=== PATIENT | female | born 1985 | race Caucasian/White ===

== ENCOUNTER 2020-04-24 00:15 | Emergency (ER) | payer SELFPAY ==
[2020-04-24] MEDS ORDERED: Cyclobenzaprine 10 MG TAB ONE (00:31)
[2020-04-24] MEDS ORDERED: Acetaminophen 500 MG TAB ONE (00:31)
[2020-04-24 00:40] LABS: #Basophils 0.1 thou/uL (0.0-0.2); #Eosinphils 0.2 thou/uL (0.0-0.7); #Monocytes 0.7 thou/uL (0.11-0.59); #Neutrophils 5.8 thou/uL (1.40-6.50); %Basophils 0.6 % (0.0-1.0); %Lymphocytes 31.2 % (21.0-51.0); %Monocytes 6.8 % (0.0-10.0); %Neutrophils 59.4 % (42.0-75.0); Hemoglobin 11.3 g/dL (12.0-16.0); Mean Corpuscular HGB CONC 34.5 g/dL (32.0-36.0); Mean Corpuscular Hemoglobin 32.6 pg (27.0-31.0); Mean Corpuscular Volume 94.6 fL (78.0-98.0); Mean Platelet Volume 6.9 fL (7.4-10.4); Platelet Count 250 thou/uL (130-400); RBC Distribution Width 11.6 % (11.5-14.5); Red Blood Cell (RBC) Count 3.47 mill/uL (4.20-5.40); White Blood Cell (WBC) Count 9.8 thou/uL (4.8-10.8)
[2020-04-24 00:48] LABS: Bilirubin Negative (Negative); Blood, Urine Negative (Negative); Clarity Clear (Clear); Glucose, Urine (Dipstick) Normal (Negative); Ketone, Urine Negative (Negative); Leukocyte 250 Leu/uL (Negative); Nitrite Negative (Negative); Protein, Urine (Dipstick) Negative (Neg-Trace); RBC/HPF 0-3 HPF (0-3); Urobilinogen Normal mg/dL (Less than 2); WBC/HPF 0-3 HPF (0-3); pH, Urine 6.5 (5.0-9.0)
[2020-04-24 00:59] LABS: Bacteria/HPF 2+ HPF (None Seen)
[2020-04-24 01:01] LABS: ALT (SGPT) 10 U/L (8-55); AST (SGOT) 10 U/L (5-34); Albumin 3.3 g/dL (3.5-5.0); Alkaline Phosphatase 53 U/L (40-110); Anion Gap 11 mmol/L (10-20); BUN (Urea Nitrogen) 9 mg/dL (7.0-18.7); Bilirubin, Total 0.2 mg/dL (0.2-1.2); Calc. Creatinine Clearance 0 mL/min (70-130); Calcium 7.9 mg/dL (7.8-10.44); Carbon Dioxide 22 mmol/L (22-29); Chloride 107 mmol/L (98-107); Globulin 2.7 g/dL (2.4-3.5); Glucose 84 mg/dL (70-105); Potassium 4.1 mmol/L (3.5-5.1); Sodium 136 mmol/L (136-145)
--- NOTE | 2020-04-24 09:10 | ULT ---
PRELIMINARY REPORT/[facility]/EMERGENCY AFTER HOURS PROCEDURE: EXAM: US Pelvis, transabdominal only. CLINICAL HISTORY: HX: PELVIC PAIN 14-15WKS PREG. NO BLEEDING. SEE NOTES ON LAST IMAGE. THANKS TECHNIQUE: Transabdominal pelvic ultrasound with image documentation. COMPARISON: None provided. FINDINGS: Single intrauterine gestation is identified. heart rate of 153 bpm. Reported spontaneous movement. EGA by ultrasound of 15 weeks, 0 days. Possible small uterine fibroid, measuring 1.6 cm. Cervix is closed. Posterior placenta. The bilateral ovaries are not evaluated. IMPRESSION: Single live intrauterine gestation with heart rate of 153 bpm. EGA by ultrasound of 15 weeks, 0 days. ELECTRONICALLY SIGNED BY: Laura Head MD Apr 24, 2020 1:59:51 AM FILLING HAND This report is intended for review by the ordering physician only, in accordance of law. If you recei ve this report in error, please call [facility] at [phone]. FINAL REPORT OB/PELVIC ULTRASOUND: HISTORY: Pelvic pain. Early . FINDINGS/IMPRESSION: Viable, intrauterine . No abnormality identified. I am in agreement with the preliminary report issued by [facility]. POS: [facility]
== END 2020-04-24 02:27 ==
LOC: ERS 00:15
DX: O23.42 Unspecified infection of urinary tract in pregnancy, second trimester (principal); O99.891 Other specified diseases and conditions complicating pregnancy; M54.5 Low back pain; Z3A.14 14 weeks gestation of pregnancy
CPT/HCPCS: 36415; 76815; 80053; 81003; 81015; 85025